=== PATIENT | female | born 1960 | race Caucasian/White ===

== ENCOUNTER 2020-09-21 10:02 | Emergency (ER) | payer OTHER, SELFPAY ==
[2020-09-21 10:03] VITALS: BP 115/71; PULSE 77; RESP 18; TEMP 36.6; O2SAT 98; BMI 25.8
--- NOTE | 2020-09-21 10:28 | ED.DCSUM_ITS ---
- ER Visit Summary Date of Service: 09/21/20 Chief Complaint: Right rib pain History of Present Illness: The patient is a 60 F who presents with right rib pain that began yesterday after a fall. Patient states she fell in her bathroom and she thinks she hit her right side on the door handle. Patient states her pain is aching and stabbing. Patient states her pain is constant. Patient states her pain is localized to the right lower chest area. Patient states her pain is worse with any movement and better with rest. Patient states she did feel dizzy and lightheaded prior to falling yesterday. Patient thinks she passed out for a couple seconds. Patient denies any chest pain or palpitations. Patient denies any shortness of breath. Patient denies any fevers or chills. Patient denies any headaches. Physical Examination: Vital signs are stable. Patient is afebrile. Patient is in no acute distress. Neck is supple. Trachea is midline. There is no JVD. Heart was regular rate and rhythm. Lungs are clear and equal bilaterally. There is tenderness with mild edema and ecchymosis over the right lower ribs. There is no bony crepitance or step-off. Abdomen is soft. Bowel sounds are normal. There is no tenderness. Cranial nerves II through XII are intact. There are no focal motor or sensory deficits. Test Results: X-rays of the right ribs were obtained. There are 5 views. On my interpretation, there is no acute fracture. There is no pneumothorax. There is no acute cardiopulmonary process. Radiologist also interpreted the x-ray and agrees. Emergency Department Course and Treatment: Patient was advised of her findings. Patient was instructed to use ice to the area. Patient was instructed to take 10-15 deep breaths every hour while awake to prevent atelectasis and pneumonia. Patient was instructed to take Tylenol or ibuprofen as needed for pain. Patient was instructed to follow-up with her primary care physician in 5 to 7 days. Patient understood and was agreeable with the plan. All questions were answered. Disposition: Discharge home Impression: 1. Right rib contusion This note was generated with [employer] software. It may contain incorrect words, spelling, and punctuation that were not noted in review of the chart prior to signing ED Disposition - Plan for ED Patient: Disposition: Home or Assisted Living Diagnosis: Contusion of rib on right side Instructions: ED Contusion, Rib Referrals: NOT,DEFINED [Primary Care Provider] - 3-5 Days
--- NOTE | 2020-09-21 10:45 | RAD_ITS ---
STUDY: X-RAY - UNILATERAL RIBS ( RIGHT ) WITH CHEST REASON FOR EXAM: Female, 60 years old. PATIENT FELL YESTERDAY. PAIN RIGHT LOWER RIBS LATERALLY. TECHNIQUE - RIBS: 4 view(s) of the ribs. TECHNIQUE - CHEST: Single PA view of the chest. COMPARISON: None. FINDINGS - RIBS: Normal visualized ribs without a demonstrated fracture. FINDINGS - CHEST: Hyperinflation. The lungs are clear. There is no demonstrated pleural abnormality. Normal size heart. Normal mediastinum and latha. Normal visualized pulmonary arteries. There is atherosclerotic calcification of the aortic arch with tortuosity. Normal visualized thoracic spine. Normal visualized ribs, clavicles, and shoulders. There is no demonstrated abnormality of the visualized soft tissue structures of the upper abdomen. RAD/Ribs Uni Min 3V w/PA Chest IMPRESSION: RIBS: Normal x-ray examination of the ribs. CHEST: Normal x-ray examination of the chest. Electronically Signed: Ty Perez MD at 11:11 EST , Service support ,
--- NOTE | 2020-09-21 12:14 | ED.RN ---
DISCHARGE INSTRUCTIONS GIVEN TO AND REVIEWED WITH PATIENT, PATIENT DENIES QUESTIONS OR CONCERNS AND VOICES UNDERSTANDING OF DISCHARGE INSTRUCTIONS. PT AMBULATES OUT OF ROOM WITHOUT DIFFICULTY.
== END 2020-09-21 12:15 | disposition home or self-care (01) ==
LOC: ED 12:06
PROVIDERS: Emergency Provider Emergency Medicine; PCP Student in an Organized Health Care Education/Training Program
DX: S20.211A Contusion of right front wall of thorax, initial encounter (principal); W22.09XA Striking against other stationary object, initial encounter
CPT/HCPCS: 71101; 99282